=== PATIENT | female | born 1960 | race Caucasian/White ===

== ENCOUNTER → 2018-01-07 | Outpatient (CLI) | payer BC ==
[~2018-01-07] MED LIST: CELEXA 20MG20 MG/TAB PO; CELEXA40 MG PO; CENESTIN PO; COLESTID 1GM1 G PO; COZAAR 50MG50 MG/TAB PO; FLEXERIL 1010 MG/TAB PO; FLONASE NASAL S16 GM NS; GLUCOPHAGE500 MG/TAB PO; HCTZ 25MG TAB25 MG PO; HCTZ 25MG25 MG PO; HYGROTON 2525 MG/TAB PO; MULTI VITAMINS1 TAB PO; PERCOCET 650 MG1 TAB PO; PRILOSEC 20MG20 MG PO; SYNTHROID 0.0.025 MG PO; TRAMADOL HCL50 MG PO; ULTRAM 50MG TAB50 MG PO; WELLBUTRIN XL300 M1 PO; ZESTRIL 20MG TA20 MG PO; ZYRTEC5 MG PO
== END ==
LOC: MC.RAD 08:13
DX: Z12.31 Encounter for screening mammogram for malignant neoplasm of breast (principal)

== ENCOUNTER → 2019-10-29 | Outpatient (CLI) | payer BC | LOC: MC.RAD 07:26 | DX: Z12.31 Encounter for screening mammogram for malignant neoplasm of breast (principal) ==

== ENCOUNTER → 2020-06-29 | Outpatient (CLI) | payer BC | LOC: COL.RAD | DX: M54.2 Cervicalgia (principal); M79.601 Pain in right arm; R53.1 Weakness ==

== ENCOUNTER → 2021-11-17 | Outpatient (CLI) | payer BC | LOC: MC.RAD 11:15 | DX: Z12.31 Encounter for screening mammogram for malignant neoplasm of breast (principal) ==